=== PATIENT | female | born 1955 ===

== ENCOUNTER 2022-12-03 21:28 | Outpatient (REF) | payer MEDICARE, SELFPAY ==
[2022-12-03 22:41] LABS: TSH 1.22 uIU/mL (0.36-3.74)
== END 2022-12-03 21:29 | disposition home or self-care (01) ==
LOC: NCHCN 21:28
PROVIDERS: PCP Family Medicine; Visit Provider Family Medicine
DX: Z13.29 Encounter for screening for other suspected endocrine disorder (principal)
CPT/HCPCS: 84443